=== PATIENT | female | born 1945 | race Caucasian/White ===

== ENCOUNTER → 2023-01-24 13:11 | Outpatient (CLI) | payer MEDICARE, SELFPAY ==
--- NOTE | 2023-01-24 | DI.CT.S_ITS ---
PROCEDURE: CT SINUS SCREEN WO CON INDICATIONS: Chronic pansinusitis TECHNIQUE: Noncontrast 3.0 mm axial images acquired from the frontal sinuses to the mid-sella, with coronal and sagittal reformats. For radiation dose reduction, the following was used: automated exposure control, adjustment of mA and/or kV according to patient size. COMPARISON: None. FINDINGS: Image quality: Excellent. Maxillary Sinuses: The left maxillary sinus is opacified with bony reactive thickening consistent with chronic sinus disease. Ethmoid Air Cells: No bony remodeling or destruction. Sinuses are clear. Sphenoid Sinuses: No bony remodeling or destruction. Sinuses are clear. Frontal Sinuses: No bony remodeling or destruction. Sinuses are clear. Ostiomeatal Complexes: The left ostiomeatal complex is occluded. The right ostiomeatal complex is patent. No Surya cells. Miscellaneous: Visualized intra-orbital contents are normal. No keith bullosa or paradoxical turbinate curvature. There is nasal septal deviation to the right. IMPRESSION: 1. Left maxillary sinus opacification with bony reactive thickening consistent with chronic sinusitis. 2. Occlusion of the left ostiomeatal complex. 3. Nasal septal deviation to the right. 4. Degenerative changes of the temporomandibular joints. Dictated by: Mason Lai M.D. on 01/24/2023 at 15:55 Approved by: Masno Lai M.D. on 01/24/2023 at 16:00
== END ==
PROVIDERS: Family Provider Family Medicine; PCP Family Medicine; Referring Provider Otolaryngology; Visit Provider Otolaryngology
DX: J32.4 Chronic pansinusitis (principal); R44.8 Other symptoms and signs involving general sensations and perceptions; R43.8 Other disturbances of smell and taste; J34.89 Other specified disorders of nose and nasal sinuses; J34.2 Deviated nasal septum
CPT/HCPCS: 70486

== ENCOUNTER → 2023-02-24 12:27 | Outpatient (CLI) | payer MEDICARE, SELFPAY ==
--- NOTE | 2023-02-24 12:29 | DI.CT.S_ITS ---
PROCEDURE: CT SINUS SCREEN WO CON INDICATIONS: Other disturbances of smell and taste TECHNIQUE: Noncontrast 3.0 mm axial images acquired from the frontal sinuses to the mid-sella, with coronal and sagittal reformats. For radiation dose reduction, the following was used: automated exposure control, adjustment of mA and/or kV according to patient size. COMPARISON: [facility], CT, CT SINUS SCREEN WO CON, 01/24/2023, 13:23. FINDINGS: Image quality: Excellent. Maxillary Sinuses: No bony remodeling or destruction. Significant improvement of left maxillary sinus disease with mild residual mucosal thickening. The right maxillary sinus is clear.. Ethmoid Air Cells: No bony remodeling or destruction. Sinuses are clear. Sphenoid Sinuses: No bony remodeling or destruction. Sinuses are clear. Frontal Sinuses: No bony remodeling or destruction. Sinuses are clear. Ostiomeatal Complexes: Ostiomeatal complexes are patent. No Surya cells. Miscellaneous: Visualized intra-orbital contents are normal. No keith bullosa or paradoxical turbinate curvature. Mild rightward nasal septal deviation with spurring. Redemonstration of degenerative changes of the temporomandibular joints. IMPRESSION: Significant improvement of left maxillary sinus disease with mild residual mucosal thickening. The left ostiomeatal complex is patent. Dictated by: Pieter Quiñones M.D. on 02/24/2023 at 14:15 Approved by: Pieter Quiñonse M.D. on 02/24/2023 at 14:22
== END ==
PROVIDERS: Family Provider Family Medicine; PCP Family Medicine; Referring Provider Otolaryngology; Visit Provider Otolaryngology
DX: J32.0 Chronic maxillary sinusitis (principal); J32.2 Chronic ethmoidal sinusitis; R44.8 Other symptoms and signs involving general sensations and perceptions; R43.8 Other disturbances of smell and taste
CPT/HCPCS: 70486

== ENCOUNTER → 2024-05-19 09:10 | Outpatient (CLI) | payer MEDICARE, OTHER, SELFPAY ==
--- NOTE | 2024-05-19 09:18 | DI.US.S_ITS ---
PROCEDURE: US CAROTID DOPPLER BI INDICATIONS: DIPLOPIA/VERTIGO TECHNIQUE: Color and pulse Doppler interrogation was performed of both carotid systems, with image documentation and velocity measurements. COMPARISON: None. FINDINGS: Stenosis calculations are based on SRU (Society of Radi[employer] in Ultrasound) criteria. Right side: Brachial blood pressure: 158/72 mm Hg. Common carotid artery peak systolic velocity: 68 cm/sec. Internal carotid artery peak systolic velocity: 105 cm/sec. Internal carotid artery end diastolic velocity: 24 cm/sec. External carotid artery peak systolic velocity: 84 cm/sec. ICA/CCA peak systolic ratio: 1.6 . Reed scale imaging description: Trace plaque Percent internal carotid artery stenosis: Mild less than 50% stenosis . Vertebral artery: Flow direction is antegrade. Left side: Brachial blood pressure: 152/76 mm Hg. Common carotid artery peak systolic velocity: 55 cm/sec. Internal carotid artery peak systolic velocity: 114 cm/sec. Internal carotid artery end diastolic velocity: 25 cm/sec. External carotid artery peak systolic velocity: 88 cm/sec. ICA/CCA peak systolic ratio: 2.1 . Reed scale imaging description: Trace plaque Percent internal carotid artery stenosis: Mild less than 50% stenosis. Vertebral artery: Flow direction is antegrade. IMPRESSION: 1. In the right carotid artery, there is mild less than 50% stenosis based on peak systolic velocity criteria. 2. In the left carotid artery, there is mild less than 50% stenosis based on peak systolic velocity criteria. 3. Antegrade vertebral arteries. Dictated by: Monet Hicks MD, PhD on 05/19/2024 at 10:35 Approved by: Monet Hicks MD, PhD on 05/19/2024 at 10:37
--- NOTE | 2024-05-19 10:56 | DI.MRI.S_ITS ---
PROCEDURE: MR STROKE Pre- and post-contrast brain MRI, non-contrast brain MR angiogram, pre- and postcontrast neck MR angiogram INDICATIONS: DIPLOPIA/VERTIGO TECHNIQUE: Brain: Noncontrast axial T1 spin echo, axial T2 fast spin echo, sagittal and axial FLAIR, coronal T2 fast spin echo, axial gradient echo, axial diffusion and ADC through the brain. After the administration of contrast, axial 3D VIBE of the cranial vasculature and brain. Brain MRA: Non-contrast 3-D time of flight MR angiogram, with multiple ulhzkfz-fbkxjqpok-gnctcinnma (MIP) reformats performed. Neck MRA: Axial and sagittal TruFISP through the neck. Coronal dynamic MR angiogram during administration of contrast in the arterial and venous phases, with 3-dimenstional olybigx-nazmieurg-tdwstftlmd (MIP) reformats constructed from subtraction images. COMPARISON: [facility], , CAROTID DOPPLER BI, 05/19/2024, 9:39. FINDINGS: Image quality: Excellent. BRAIN: CSF spaces: Ventricles are normal in size and shape. Basal cisterns are patent. No extra-axial fluid collections. Brain: No intracranial bleeds or mass effects. Mild, diffuse cerebral volume loss. Mild periventricular and subcortical white matter chronic microvascular ischemic changes. Reed-white matter interface is normal. Diffusion weighted images show no acute infarct. Brainstem appears normal. Normal intravascular flow voids are present. Dural sinuses demonstrate normal postcontrast enhancement. No abnormal intracranial enhancement. Skull and face: Calvarial marrow signal is normal. Orbits appear normal. Sinuses: Sinuses and mastoids are clear. BRAIN MR ANGIOGRAM: Anterior circulation: Intracranial internal carotid arteries are normal in size and enhancement. The flow within the paired anterior cerebral arteries is normal and symmetric. The flow within the middle cerebral arteries is normal and symmetric. The anterior communicating artery is seen. No stenoses, occlusions, or aneurysms. Posterior circulation: The visualized portions of the vertebral arteries demonstrate normal caliber, and join to form a normal appearing basilar artery. The flow within the posterior cerebral arteries is normal and symmetric. No stenoses, occlusions, or aneurysms. NECK MR ANGIOGRAM: Carotids: Great vessels demonstrate bovine variant anatomy as they arise from the aortic arch. The origins of the common carotid arteries appear patent. The calibers and courses of both common carotid arteries are normal. The bifurcation regions appear normal bilaterally. The internal carotid arteries demonstrate normal course and caliber. Posterior circulation: Origin of the left vertebral artery is fully patent. Atherosclerotic irregularity noted in the origin of the right vertebral artery which causes high-grade, short segment stenosis. More superior portions of both vertebral arteries demonstrate normal course and caliber, and join to form a normal appearing basilar artery. Miscellaneous: Subclavian arteries appear patent. Pre-contrast images through the neck show no soft tissue abnormalities. IMPRESSION: BRAIN MRI: No acute intracranial disease process. No acute or chronic infarcts. No intracranial hemorrhage. No suspicious postcontrast enhancement. Mild, diffuse cerebral volume loss and mild chronic microvascular white matter ischemic changes. BRAIN MR ANGIOGRAM: Normal examination. 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 Otherwise, normal MR angiogram of the neck. Dictated by: Monet Hicks MD, PhD on 05/19/2024 at 11:21 Approved by: Monet Hicks MD, PhD on 05/19/2024 at 11:31
[2024-05-19 11:40] LABS: Add Manual Diff / Slide Review NO; Basophils Absolute Auto 0 /uL (0-100); Basophils Percent Auto 0.3 % (0-2); Eosinophils Absolute Auto 100 /uL (0-450); Eosinophils Percent Auto 1.5 % (2-4); Hematocrit 38.3 % (36-46); Lymphocytes Absolute Auto 700 /uL (1100-4500); Lymphocytes Percent Auto 16.9 % (25-40); Mean Corpuscular HGB Conc 33.9 % (30-36); Mean Corpuscular Volume 91.5 fL (80-100); Monocytes Absolute Auto 200 /uL (0-900); Monocytes Percent Auto 4.1 % (3-14); Neutrophils Absolute Auto 3400 /uL (1500-7000); Neutrophils Percent Auto 77.2 % (50-75); Platelet Count 307 X10^3/uL (150-400); Red Blood Cell Count 4.19 X10^6/uL (4.0-5.2); Red Cell Distribution Width 14.3 % (11.6-14.8); White Blood Cell Count 4.4 X10^3/uL (4.5-11.0)
[2024-05-19 12:05] LABS: Alanine Aminotransferase 26 IU/L (<35); Albumin 4.3 g/dL (3.5-5.0); Albumin Globulin Ratio 1.9 (1.0-2.8); Alkaline Phosphatase 64 U/L (38-126); Aspartate Aminotransferase 24 IU/L (14-36); BUN Creatinine Ratio 28.2 (6-22); Bilirubin Total 0.6 mg/dL (0.2-1.3); Blood Urea Nitrogen 24 mg/dL (7-17); Calcium 9.7 mg/dL (8.4-10.2); Carbon Dioxide 24 mmol/L (22-32); Chloride 105 mmol/L (98-107); Estimated Glomerular Filt Rate > 60 mL/min (>60); Globulin 2.3 g/dL (1.7-4.1); Glucose 104 mg/dL (80-110); HEMOLYSIS < 15 (0-50); Sodium 139 mmol/L (137-145); Total Protein 6.6 g/dL (6.3-8.2)
[2024-05-19 12:22] LABS: Erythrocyte Sedimentation Rate 12 MM/HR (0-20)
[2024-05-20 04:10] LABS: CRP, High Sensitivity 0.37 mg/L (0.00-3.00)
== END ==
PROVIDERS: Family Provider Family Medicine; PCP Family Medicine; Referring Provider Ophthalmology; Visit Provider Ophthalmology
DX: I65.01 Occlusion and stenosis of right vertebral artery (principal); H53.2 Diplopia; I65.23 Occlusion and stenosis of bilateral carotid arteries; H81.393 Other peripheral vertigo, bilateral
CPT/HCPCS: 36415; 70544; 70549; 70553; 80053; 85025; 85651; 86140; 93880; A9579

== ENCOUNTER → 2024-07-06 15:46 | Outpatient (CLI) | payer MEDICARE, OTHER, SELFPAY ==
[2024-07-06 16:57] LABS: BUN Creatinine Ratio 24.2 (6-22); Blood Urea Nitrogen 23 mg/dL (7-17); Calcium 10.1 mg/dL (8.4-10.2); Carbon Dioxide 29 mmol/L (22-32); Chloride 101 mmol/L (98-107); Estimated Glomerular Filt Rate > 60 mL/min (>60); Glucose 149 mg/dL (70-99); HEMOLYSIS < 15 (0-50); Potassium 3.7 mmol/L (3.4-5.1); Sodium 138 mmol/L (137-145)
== END ==
PROVIDERS: Family Provider Family Medicine; PCP Family Medicine; Referring Provider Internal Medicine Nephrology; Visit Provider Internal Medicine Nephrology
DX: I10 Essential (primary) hypertension (principal)
CPT/HCPCS: 36415; 80048